=== PATIENT | female | born 1980 | race Caucasian/White ===

== ENCOUNTER 2018-12-08 17:49 | Emergency (ER) | payer SELFPAY ==
[~2018-12-08] VITALS: Ht 165.1 cm; Wt 129.4 kg
--- OUTSIDE RECORDS SUMMARY | 2018-12-08 17:52 | XMS REPORT | Clinical Summary ---
Author Author [facility] Address Unknown Phone Unavailable Care Team Providers Care Billing Control Clerk Name Role Phone Sagrario Cifuentes PCP Allergies Comments Active Allergy Reactions Severity Noted Date Penicillins Anaphylaxis High 04/12/2015 Sulfa (Sulfonamide Anaphylaxis High 04/12/2015 Antibiotics) Medications End Date Status Medication Sig Dispensed Refills Start Date Active famotidine (PEPCID) 20 MG Take 1 tablet 60 tablet 4 tablet (20 mg total) 6 by mouth 2 (two) times daily. Active traMADol (ULTRAM) 50 mg Take 50 mg by 0 tablet mouth every 6 (six) hours as needed for Pain. Active Problems Problem Noted Date Morbid obesity 04/27/2015 Encounters Care Team Description Date Type Specialty Geraldine Alejandro RN 10/31/2018 Documentation Geraldine Alejandro RN 10/23/2018 Documentation Geraldine Alejandro RN 08/27/2018 Documentation after 12/07/2017 Social History Date Tobacco Use Types Packs/Day Years Used Never Smoker Smokeless Tobacco: Never Used Alcohol Use Drinks/Week oz/Week Comments Yes rarely Sex Assigned at Date Recorded Not on file Industry Job Start Date Occupation Not on file Not on file Not on file Travel End Travel History Travel Start No recent travel history available. Last Filed Vital Signs Not on file Plan of Treatment Not on file Results Not on fileafter 12/07/2017 Insurance Payer Benefit Subscriber ID Type Phone Address Plan / Group [employer] xxxxxxxxxxxx PPO [phone] [address] [place]/PPO/[place] [address] O Advance Directives For more information, please contact: [address] [address] Date Inactivated Comments Code Status Date Activated 04/29/2015 1:53 PM Full Code 04/27/2015 5:22 PM This code status was determined by: Patient
--- NOTE | 2018-12-08 18:42 | Diagnostic Imaging Report ---
EXAMINATION: PA and lateral views of the chest. COMPARISON: None CLINICAL HISTORY: Chest pain DISCUSSION: Lines/tubes: None. Lungs: The lungs are well inflated and clear. There is no evidence of pneumonia or pulmonary edema. Pleura: There is no pleural effusion or pneumothorax. Heart and mediastinum: Cardiomediastinal silhouette is unremarkable. Pulmonary vasculature is normal. Bones and soft tissues: No acute bony abnormalities. IMPRESSION: No acute cardiopulmonary abnormalities. Signed by: Dr. Patrick Aguillon M.D. on 12/08/2018 6:39 PM
[2018-12-08 19:23] VITALS: BP 114/67
== END 2018-12-08 19:34 | disposition home or self-care (01) ==
LOC: FSED 17:49
DX: R07.89 Other chest pain (principal); K21.9 Gastro-esophageal reflux disease without esophagitis; E78.00 Pure hypercholesterolemia, unspecified
CPT/HCPCS: 71046; 80053; 81003; 82553; 83880; 84484; 85025; 85379; 93005; 99284